=== PATIENT | female | born 1995 | race Caucasian/White ===

== ENCOUNTER 2023-05-04 06:17 | Emergency (ER) | payer MEDICAID ==
[~2023-05-04] VITALS: Ht 160 cm; Wt 76.2 kg
[2023-05-04] MEDS ORDERED: normal saline 1000ml 1,000 ML IV ONE (06:45)
[2023-05-04] MEDS: morphine 2 MG/ML inj. syringe IV PRN ×3 (07:04→08:30)
[2023-05-04 07:14] LABS: BASOPHILS % (AUTO) 0.2 % (0-1); EOSINOPHILS % (AUTO) 0.3 % (0-6); HEMATOCRIT 39.9 % (35.0-45.0); HEMOGLOBIN 13.3 g/dl (12.0-16.0); LYMPHOCYTES # (AUTO) 0.6 X10'3 (1.1-4.8); LYMPHOCYTES % (AUTO) 5.8 % (21-51); MEAN CORPUSCULAR HEMOGLOBIN 32.3 PG (27.0-31.0); MEAN CORPUSCULAR HGB CONC 33.3 g/dL (33.0-36.5); MEAN PLATELET VOLUME 9.5 FL (7.4-10.4); MONOCYTES # (AUTO) 0.5 X10'3 (0-0.9); NEUTROPHILS # (AUTO) 9.1 X10'3 (1.8-7.7); NEUTROPHILS % (AUTO) 88.7 % (42-75); PLATELET COUNT 235 X10'3 (140-440); RED BLOOD COUNT 4.11 X10'6 (4.20-5.60); RED CELL DISTRIBUTION WIDTH 13.1 % (11.5-14.5); WHITE BLOOD COUNT 10.3 X10'3 (4.5-11.0)
[2023-05-04] MEDS ORDERED: ondansetron/PF 4mg/2ml inj IV ONE (07:15)
[2023-05-04 07:29] LABS: ALANINE AMINOTRANSFERASE 23 U/L (12-78); ALBUMIN 3.8 G/DL (3.4-5.0); ALBUMIN/GLOBULIN RATIO 1.1 (1.1-1.5); ALKALINE PHOSPHATASE 44 IU/L (46-116); ANION GAP 11 (8-16); ASPARTATE AMINO TRANSFERASE 22 U/L (10-37); BILIRUBIN,TOTAL 0.2 MG/DL (0.1-1.0); BLOOD UREA NITROGEN 14 MG/DL (7-18); BUN/CREATININE RATIO 22.2 (10.0-20.0); CALCIUM 8.8 MG/DL (8.5-10.1); CHLORIDE 105 MMOL/L (99-107); CREATININE 0.63 MG/DL (0.40-0.90); GLUCOSE 118 MG/DL (70-104); SODIUM 142 MMOL/L (135-145); TOTAL CARBON DIOXIDE 25.6 MMOL/L (24-32); TOTAL PROTEIN 7.3 G/DL (6.4-8.2); eCRCL 112 ML/MIN; eGFR > 90 ML/MIN
[2023-05-04 08:07] LABS: LIPASE > 375 U/L (16-77)
[2023-05-04] MEDS ORDERED: IBUP-1984 PO ×2 (08:47)
[2023-05-04 08:58] VITALS: BP 110/72; PULSE 97; RESP 16; TEMP 98; O2SAT 98
== END 2023-05-04 09:00 | disposition home or self-care (01) ==
LOC: ER 06:18
DX: S29.012A Strain of muscle and tendon of back wall of thorax, initial encounter (principal); X58.XXXA Exposure to other specified factors, initial encounter; Y93.89 Activity, other specified; Y92.89 Other specified places as the place of occurrence of the external cause; Y99.8 Other external cause status
CPT/HCPCS: 36415; 71100; 76700; 80053; 83690; 84484; 85025; 96361; 96374; 96375; 99285; J2270; J2405; J7030

== ENCOUNTER 2025-04-03 16:00 | Emergency (ER) | payer MEDICAID ==
[~2025-04-03] VITALS: Ht 160 cm; Wt 77.3 kg
[2025-04-03 16:07] VITALS: TEMP 98.4
--- NOTE | 2025-04-03 18:00 | Physician Documentation ---
History of Present Illness ~ Chief Complaint: Eye Pain Stated Complaint: EYE PAIN Time Seen by MD: 17:53 Primary Medical Doctor: none HPI 29-year-old female presents to the ED with a complaint of left eyelid pain redness in her eyes and crusty discharge. States that she has a intermittent blurred vision , denies any pain behind her eye Day of Onset: Apr 03, 2025 Medication Reconciliation Allergies: Coded Allergies: No Known Allergies (Unverified , 05/04/23) Scheduled Erythromycin Base Opth. Ointment* (Erythromycin Opth. Ointment*), 1 APPLIC LEFTEYE Q4HWA Past Medical History Past Medical History: No Pertinent History Past Surgical History: no surgical history Lives with: Family Lives In: Home Review of Systems All Other Systems at this time: Reviewed and Negative ROS As stated above in the HPI, otherwise all systems are reviewed and negative. Physical Exam Vital Signs: Temperature: 98.4, Source: Oral, Heart Rate: 108, Respiratory Rate: 18, BP: 129/93, Pulse Oximetry: 98, Weight: 77.270 Oxygen Flow Rate: 0 Physical Exam General: Alert, no apparent distress. HEENT: PERRL, EOMI, no injection, moist mucous membranes. left sclera injected,reactive to light ,no evidence of glazing or haze pupil Neck: Full range of motion. Respiratory: Lungs clear, no respiratory distress. Neurologic: Oriented x4. Psychiatric: Normal mood and affect. Skin: Normal color, warm and dry. No edema, no ecchymosis. Progress Results/Orders Results/Orders Completed Orders - GO SELBY NP Erythromycin Ophth Ointment (Ilotycin Op (04/03/25 18:10) Medications Received in ER Medications (Trade) Dose Ordered Sig/Rafiq Route PRN Reason Start Time Stop Time Status Last Admin Dose Admin (Ilotycin ophth ointment) 0.25 inch ONCE ONCE LEFTEYE 04/03/25 18:10 04/03/25 18:11 DC 04/03/25 18:14 0.25 INCH Vital Signs 04/03/25 04/03/25 16:07 18:20 Temp 98.4 Pulse 108 105 Resp 18 16 B/P (MAP) 129/93 129/93 Pulse Ox 98 98 O2 Flow Rate 0 Medical Decision Making Additional information obtaine: old records Findings I could not appreciate any signs that would concern me for acute angle glaucoma. You have however suspect The patient presents with scleral injection, most consistent with conjunctivitis. There is no history of recent eye trauma or foreign body exposure. The patient is well appearing, and the examination was otherwise unremarkable. No photophobia or double/blurry vision reported. Based on the history and physical exam, there is low clinical suspicion for iritis, acute angle closure glaucoma, uveitis, keratitis, endophthalmitis, or a foreign body. [Fluorescein staining was performed and showed no evidence of corneal abrasion. Sandie sign is negative, with low suspicion for globe rupture.] [Patient is a contact lens wearer and therefore an antipseudomonal fluoroquinolone eye drop was used, and patient understands to avoid contact use until cleared by educational technology specialist.] [Patient DOES NOT wear contact lens and therefore Erythromycin ophthalmic or Trimethoprim-polymyxin was prescribed.] I reviewed the patient's past medical history, clinical risk factors, comorbidities, social determinants of health and any relevant diagnostic studies. The patient was advised to follow up with PCP/ophthalmology in 24-48 hours if symptoms worsen or do not improve, or if they develop any concerning symptoms such as worsening pain or redness, new vision changes, headache, fever, or any other worsening/concerning symptoms. The patient is aware that the purpose of this visit was to screen for an occult medical emergency requiring emergent stabilization. Chronic and occult conditions, including malignancies, have not been ruled out. If the patient is unable to arrange follow-up as stated in the discharge instructions and further discussed with the patient directly, or their symptoms worsen/become more concerning, they are to return to the ED for reassessment immediately. Prior to leaving the department, the patient has a plan for discharge, has decision- making capacity, and acknowledges an understanding of the verbal and written discharge instructions. Discharge instructions reviewed and provided. Ear Diff. Dx: Considerations: Unlikely: Abrasion, Cerumen impaction, Foreign body, Otitis externa, Barotrauma, Otitis media, Perforation, Referred pain- dental, Referred pain-pharyngitis, Referred pain-sinusitis, Referred pain-TMJ syn., Tympanic Membrane Injury, Other Eye Diff. Dx: Considerations: Include: Chalazoin, Conjuctivits-allergic, Conjuctivitis-bacterial, Conjuctivits-chlamydial, Conjuctivitis-viral, Corneal abrasion, Corneal laceration, Corneal ulceration, Foreign body-conjuctiva, Foreign body-corneal, Foreign body-intraocular, Foreign body-lid, Glaucoma, Globe rupture, Hordeolum, Iritis, Orbital cellulitis, Periobital cellulitis, Retinal artery occulsion, Retinal vein occlusion, Rust ring, Subconjunctival hem, Ultraviolet keratitis, Uveitis, Vitreous hemorrhage, Other Nose Diff. Dx: Considerations: Unlikely: Abrasion, Anterior nasal bleed, Avulsion, Contusion, Coagulopathy, Fracture-nasal bone, Fracture-septum, Hypertension, Laceration, Other, Posterior nasal bleed, Retained foreign body, Septal hematoma Tooth Diff. Dx: Considerations: Unlikely: Alveolar fracture, Aveolar osteitis, ANUG, Facial cellulitis, Periapical abscess, Periodontal abscess, Post- extraction bleeding, Pulpitis, Trigeminal neuralgia, Tooth-avulsion, Tooth- eruption, Tooth-fracture, Tooth-subluxation, Other Throat Diff Dx: Considerations: Unlikely: AIDS, Epiglottitis, Esophageal candidiasis, Hand foot mouth disease, Herpangina, Herpetic stomatitis, Herpes simplex, Infection mononucleosis, Immunodeficiency, Rodolfo's angina, Peritonsillar abscess, Peritonsillar cellulitis, Pharyngitis-diphtheria, Pharyngitis-strepococcal, Pharyngitis-viral, Thrush, URI, Other Departure Disposition: 01 HOME / SELF CARE / HOMELESS Impression: Primary Impression: Bacterial conjunctivitis of left eye Condition: Improved Discharge Instructions: Bacterial Conjunctivitis, Adult, [id number] Departure Forms: Excuse form Work or School Excused From: Work Excuse beginning now through the following date: Apr 05, 2025 Referrals: NO PRIMARY CARE PROVIDER (PCP) Prescriptions Erythromycin Base Opth. Ointment* (Erythromycin Opth. Ointment*) 1 Gm Tube 1 APPLIC ROBINSON Q4HWA, #1 EACH Prov: GO SELBY NP 04/03/25 Signature Scribe Signature: g Attestation: Scribed for Go Selby Np by Go Selby - ELBA . 04/03/25 18:05 GO SELBY NP Apr 03, 2025 18:00
[2025-04-03] MEDS ORDERED: ERYT1OIN6 LEFTEYE (18:05)
[2025-04-03] MEDS: erythromycin ophthalmic ointment 1gm tube LEFTEYE ONE (18:14)
[2025-04-03 18:20] VITALS: BP 129/93; PULSE 105; RESP 16; O2SAT 98
== END 2025-04-03 18:22 | disposition home or self-care (01) ==
LOC: ER 16:02
DX: H10.89 Other conjunctivitis (principal)
CPT/HCPCS: 99283